=== PATIENT | male | born 1935 | race Caucasian/White ===

== ENCOUNTER 2016-12-17 10:50 | Emergency (ER) | payer MEDICARE ==
[~2016-12-17] VITALS: Ht 177.8 cm; Wt 68.2 kg
[~2016-12-17 10:50] MED LIST: BACLOFEN10 MG PO; BENAZEPRIL5 MG PO; CARBAMAZEPIN200 MG PO; CARVEDILOL6.25 MG PO; COREG6.25 MG PO; DIGITEK0.125 MG PO; FLOMAX0.4 M1 PO; LANOXIN0.125 MG PO; PRAVASTATIN20 MG OR; TAMSULOSIN HCL0.4 MG PO; TYLENOL # 31 TA1 PO
[2016-12-17] MEDS ORDERED: ATORVASTATIN CA80 MG PO (11:17)
[2016-12-17] MEDS ORDERED: BENAZEPRIL10 MG PO (11:18)
[2016-12-17] MEDS ORDERED: LANOXIN0.125 MG PO (11:21)
[2016-12-17] MEDS ORDERED: FINASTERIDE5 MG PO (11:23)
[2016-12-17] MEDS ORDERED: DOXYCYC MONO100 M1 PO (11:31)
[2016-12-17 11:34] VITALS: BP 148/78
== END 2016-12-17 11:59 | disposition home or self-care (01) ==
LOC: ED 10:50
PROC: 0HCMXZZ Extirpation of Matter from Right Foot Skin, External Approach (ICD-10-PCS; principal; 2016-12-17)
DX: S91.341A Puncture wound with foreign body, right foot, initial encounter (principal); W45.8XXA Other foreign body or object entering through skin, initial encounter; Y92.009 Unspecified place in unspecified non-institutional (private) residence as the place of occurrence of the external cause

== ENCOUNTER 2016-12-19 08:40 | Inpatient (IN) | payer MEDICARE ==
[~2016-12-19] VITALS: Ht 177.8 cm; Wt 66.4 kg
[~2016-12-19 08:40] MED LIST changes: +ATORVASTATIN CA80 MG PO; +BENAZEPRIL10 MG PO; +DOXYCYC MONO100 M1 PO; +FINASTERIDE5 MG PO
[2016-12-19 09:43] LABS: ALBUMIN 4.1 g/dL (3.2-5.0); ALKALINE PHOSPHATASE 68 u/l (38-126); ANION GAP 17 (6-22 (CALC)); BILIRUBIN, TOTAL 0.3 mg/dL (0.0-1.4); BUN 26 mg/dL (8-23); BUN/CREATININE RATIO 30 (12-20 (CALC)); CARBON DIOXIDE 27 mmol/l (22-30); CHLORIDE 103 mmol/l (95-108); CREATININE 0.9 mg/dL (0.7-1.3); GFR > 60 ML/MIN (>=60 (CALC)); GFR FOR AFR.AMER. > 60 ML/MIN (>=60 (CALC)); GLUCOSE 198 mg/dL (82-115); POTASSIUM 4.2 mmol/l (3.5-5.1); SGOT/AST 20 u/l (19-48); SGPT/ALT 20 u/l (11-66); SODIUM 142 mmol/l (137-146); TOTAL PROTEIN 7.1 g/dL (6.3-8.2)
[2016-12-19 09:48] LABS: HEMOGLOBIN 12.8 g/dl (14.0-18.0); RED BLOOD COUNT 3.79 mill/uL (4.70-6.10)
[2016-12-19 09:49] LABS: EOS% 3 % (0-8); HEMATOCRIT 37.5 % (39.0-50.0); LYMPH% 10 % (15-41); MEAN CELL VOLUME 98.9 fL CALC (80.0-100.0); MEAN CORPUSCULAR HGB 33.8 pG CALC (26.0-32.0); MEAN CORPUSCULAR HGB CONC 34.1 g/L CALC (32.0-36.0); MONO% 5 % (2-13); NEUT% 82 % (42-76); PLATELET COUNT 251 thou/uL (130-400); RED CELL DISTRI WIDTH 14.2 % (11.5-15.5)
[2016-12-19 11:15] VITALS: BP 128/66
[2016-12-19 16:26] VITALS: BP 147/69
[2016-12-19] MEDS ORDERED: ACID CONTROL MA20 MG PO (16:38)
[2016-12-19] MEDS ORDERED: BACLOFEN10 MG PO (16:39)
[2016-12-19] MEDS ORDERED: CARBAMAZEPIN200 M1 PO (16:41)
[2016-12-19 18:56] LABS: URINE BILIRUBIN - DIPSTICK NEGATIVE (NEGATIVE); URINE BLOOD DIPSTICK NEGATIVE (NEGATIVE); URINE COLOR YELLOW; URINE GLUCOSE - DIPSTICK NEGATIVE (NEGATIVE); URINE KETONE NEGATIVE (NEGATIVE); URINE LEUK ESTERASE NEGATIVE (Negative); URINE NITRITE - DIPSTICK NEGATIVE (Negative); URINE PROTEIN - DIPSTICK TRACE mg/dL (NEG-TRACE); URINE UROBILINOGEN - DIPSTICK 0.2 E.U./dL (0.2)
[2016-12-19 18:57] LABS: URINE CLARITY SLIGHT CLOUDY
[2016-12-19 19:35] VITALS: BP 136/76
[2016-12-20 03:20] VITALS: BP 151/72
[2016-12-20 05:55] LABS: HEMATOCRIT 36.8 % (39.0-50.0); HEMOGLOBIN 12.1 g/dl (14.0-18.0); IMMATURE GRANULOCYTES 0.2 % (0.0-1.0); MEAN CELL VOLUME 97.4 fL CALC (80.0-100.0); MEAN CORPUSCULAR HGB CONC 32.9 g/L CALC (32.0-36.0); NEUT# 5.46 thou/uL (1.82-7.42); RED BLOOD COUNT 3.78 mill/uL (4.70-6.10); RED CELL DISTRI WIDTH 13.7 % (11.5-15.5)
[2016-12-20 06:11] LABS: ANION GAP 15 (6-22 (CALC)); BUN 20 mg/dL (8-23); BUN/CREATININE RATIO 26 (12-20 (CALC)); CALCIUM 8.4 mg/dL (8.4-10.2); CARBON DIOXIDE 25 mmol/l (22-30); CHLORIDE 105 mmol/l (95-108); CREATININE 0.8 mg/dL (0.7-1.3); GFR > 60 ML/MIN (>=60 (CALC)); GFR FOR AFR.AMER. > 60 ML/MIN (>=60 (CALC)); GLUCOSE 105 mg/dL (82-115); POTASSIUM 4.2 mmol/l (3.5-5.1); SODIUM 141 mmol/l (137-146)
[2016-12-20 07:36] VITALS: BP 148/68
[2016-12-20] MEDS ORDERED: CIPROFLOXACN500 MG PO (15:22)
[2016-12-20] MEDS ORDERED: DAPTOMYCIN500 MG IV (15:22)
== END 2016-12-20 16:20 | DRG 603 ==
LOC: ENPENDDIS → ED 08:40 → ED-I 10:04 → ED 10:23 → MS2 10:24
PROVIDERS: Emergency Medicine; ADMIT Internal Medicine; ATTEND Internal Medicine
DX: L03.115 Cellulitis of right lower limb (principal); I42.0 Dilated cardiomyopathy; I50.22 Chronic systolic (congestive) heart failure; I11.0 Hypertensive heart disease with heart failure; S91.341A Puncture wound with foreign body, right foot, initial encounter; E78.5 Hyperlipidemia, unspecified; N40.1 Benign prostatic hyperplasia with lower urinary tract symptoms; R33.8 Other retention of urine; R35.1 Nocturia; M19.90 Unspecified osteoarthritis, unspecified site; K46.9 Unspecified abdominal hernia without obstruction or gangrene; Z95.810 Presence of automatic (implantable) cardiac defibrillator; Z87.891 Personal history of nicotine dependence; Z88.0 Allergy status to penicillin; W22.8XXA Striking against or struck by other objects, initial encounter
CPT/HCPCS: J1650; J3370

== ENCOUNTER → 2018-08-29 | Outpatient (REF) | payer MEDICARE ==
[~2018-08-29] MED LIST changes: +ACID CONTROL MA20 MG PO; +CARBAMAZEPIN200 M1 PO; +CIPROFLOXACN500 MG PO; +DAPTOMYCIN500 MG IV
[2018-08-29 08:33] LABS: ALBUMIN 3.9 g/dL (3.2-5.0); ALKALINE PHOSPHATASE 92 u/l (38-126); ANION GAP 16 (6-22 (CALC)); BILIRUBIN, TOTAL 0.2 mg/dL (0.0-1.4); BUN 24 mg/dL (8-23); BUN/CREATININE RATIO 26 (12-20 (CALC)); CARBON DIOXIDE 31 mmol/l (22-30); CHLORIDE 101 mmol/l (95-108); CHOLESTEROL HDL RATIO 3.8 (<4.4 (CALC)); CREATININE 0.9 mg/dL (0.7-1.3); GFR > 60 ML/MIN (>=60 (CALC)); GFR FOR AFR.AMER. > 60 ML/MIN (>=60 (CALC)); HDL CHOLESTEROL 29 mg/dL (>=40); POTASSIUM 4.5 mmol/l (3.5-5.1); SGOT/AST 24 u/l (19-48); SODIUM 143 mmol/l (137-146); TOTAL TRIGLYCERIDES 121 mg/dl (30-149); VLDL CHOLESTROL 24 mg/dl (0-38 (CALC))
[2018-08-29 09:10] LABS: HEMATOCRIT 36.6 % (39.0-50.0); HEMOGLOBIN 11.3 g/dl (14.0-18.0); IMMATURE GRANULOCYTES 0.9 % (0.0-5.0); MEAN CELL VOLUME 92.9 fL CALC (80.0-100.0); MEAN CORPUSCULAR HGB 28.7 pG CALC (26.0-32.0); MEAN CORPUSCULAR HGB CONC 30.9 g/L CALC (32.0-36.0); NEUT# 5.43 thou/uL (1.82-7.42); RED BLOOD COUNT 3.94 mill/uL (4.70-6.10); RED CELL DISTRI WIDTH 15.9 % (11.5-15.5)
[2018-08-29 09:13] LABS: CALCULATED LDLCHOLESTEROL 58 mg/dL (62-129 (CALC)); TOTAL CHOLESTEROL 111 mg/dl (0-199)
== END | disposition home or self-care (01) ==
LOC: LAB 06:54
PROVIDERS: ATTEND Internal Medicine
DX: I10 Essential (primary) hypertension (principal); E78.49 Other hyperlipidemia; E03.9 Hypothyroidism, unspecified; R53.83 Other fatigue; E11.65 Type 2 diabetes mellitus with hyperglycemia; E55.9 Vitamin D deficiency, unspecified

== ENCOUNTER 2019-03-14 09:19 | Emergency (ER) | payer MEDICARE ==
[~2019-03-14] VITALS: Ht 177.8 cm; Wt 60.0 kg
[~2019-03-14 09:19] MED LIST changes: -BENAZEPRIL10 MG PO; +LOTENSIN10 MG PO
[2019-03-14 09:59] VITALS: BP 151/67
[2019-03-14] MEDS ORDERED: CYCLOBENZAPRINE5 MG PO (10:02)
== END 2019-03-14 10:35 | disposition home or self-care (01) ==
LOC: ED 09:19
DX: M54.6 Pain in thoracic spine (principal); M62.830 Muscle spasm of back; I10 Essential (primary) hypertension; I25.10 Atherosclerotic heart disease of native coronary artery without angina pectoris

== ENCOUNTER 2019-03-17 09:02 | Emergency (ER) | payer MEDICARE ==
[~2019-03-17] VITALS: Ht 177.8 cm; Wt 55.0 kg
[~2019-03-17 09:02] MED LIST changes: +CYCLOBENZAPRINE5 MG PO
[2019-03-17 10:10] LABS: ALBUMIN 3.4 g/dL (3.2-5.0); ALKALINE PHOSPHATASE 60 u/l (38-126); BILIRUBIN, TOTAL 0.2 mg/dL (0.0-1.4); BUN 15 mg/dL (8-23); BUN/CREATININE RATIO 16 (12-20 (CALC)); CARBON DIOXIDE 29 mmol/l (22-30); CHLORIDE 101 mmol/l (95-108); CREATININE 0.9 mg/dL (0.7-1.3); GFR > 60 ML/MIN (>=60 (CALC)); GFR FOR AFR.AMER. > 60 ML/MIN (>=60 (CALC)); SGOT/AST 20 u/l (19-48); SODIUM 141 mmol/l (137-146); TOTAL PROTEIN 6.3 g/dL (6.3-8.2)
[2019-03-17 10:14] LABS: ANION GAP 15 (6-22 (CALC)); DIGOXIN < 0.4 ng/mL (0.8-2.0); POTASSIUM 3.7 mmol/l (3.5-5.1)
[2019-03-17] MEDS ORDERED: PERCOCET 10/31 COMBO PO (10:39)
[2019-03-17] MEDS ORDERED: DELTASONE20 MG PO (10:39)
[2019-03-17] MEDS ORDERED: DICLOFENAC50 MG PO (10:40)
[2019-03-17 11:00] VITALS: BP 127/58
== END 2019-03-17 11:00 | disposition home or self-care (01) ==
LOC: ED 09:02
PROVIDERS: Emergency Medicine
DX: M54.2 Cervicalgia (principal); G89.29 Other chronic pain; R51 Headache; I10 Essential (primary) hypertension

== ENCOUNTER 2019-06-30 04:04 | Emergency (ER) | payer MEDICARE ==
[~2019-06-30] VITALS: Ht 177.8 cm; Wt 68.0 kg
[~2019-06-30 04:04] MED LIST changes: +DELTASONE20 MG PO; +DICLOFENAC50 MG PO; +PERCOCET 10/31 COMBO PO
[2019-06-30] MEDS ORDERED: PERCOCET 5/325M1 TAB PO (06:01)
[2019-06-30 06:10] VITALS: BP 150/58
== END 2019-06-30 06:10 | disposition home or self-care (01) ==
LOC: ED 04:04
DX: M79.651 Pain in right thigh (principal); M17.11 Unilateral primary osteoarthritis, right knee; I10 Essential (primary) hypertension; I25.10 Atherosclerotic heart disease of native coronary artery without angina pectoris

== ENCOUNTER 2021-11-30 18:05 | Emergency (ER) | payer MEDICARE ==
[~2021-11-30] VITALS: Ht 177.8 cm; Wt 72.7 kg
[~2021-11-30 18:05] MED LIST changes: +CALCI17 PO; +FAMOTIDINE20 M1 PO; +LEVOCETIRIZINE D5 MG PO; +MULTI VIT PO; +PERCOCET 5/325M1 TAB PO; +PROSTAT1 PO; +VITAMI16 PO
[2021-11-30 19:03] LABS: URINE BILIRUBIN - DIPSTICK NEGATIVE (NEGATIVE); URINE BLOOD DIPSTICK NEGATIVE (NEGATIVE); URINE COLOR YELLOW; URINE GLUCOSE - DIPSTICK NEGATIVE (NEGATIVE); URINE KETONE TRACE mg/dL (NEGATIVE); URINE PH 5.5 (4.5-8.0); URINE PROTEIN - DIPSTICK 30 mg/dL (NEG-TRACE); URINE SPECIFIC GRAVITY 1.025; URINE UROBILINOGEN - DIPSTICK 0.2 E.U./dL (0.2)
[2021-11-30 19:11] LABS: URINE LEUK ESTERASE SMALL (NEGATIVE); URINE NITRITE - DIPSTICK NEGATIVE (Negative)
[2021-11-30 19:12] LABS: URINE RBC 0-2 RBC/hpf (0-5)
[2021-11-30 19:35] LABS: HEMATOCRIT 37.5 % (39.0-50.0); HEMOGLOBIN 11.6 g/dl (14.0-18.0); IMMATURE GRANULOCYTES 0.1 % (0.0-5.0); MEAN CELL VOLUME 97.4 fL CALC (80.0-100.0); MEAN CORPUSCULAR HGB 30.1 pG CALC (26.0-32.0); MEAN CORPUSCULAR HGB CONC 30.9 g/dL CAL (32.0-36.0); NEUT# 7.28 thou/uL (1.82-7.42); RED BLOOD COUNT 3.85 mill/uL (4.70-6.10)
[2021-11-30 19:52] LABS: ANION GAP 17 (6-22 (CALC)); BUN 24 mg/dL (8-23); BUN/CREATININE RATIO 21 (12-20 (CALC)); CARBON DIOXIDE 22 mmol/l (22-30); CHLORIDE 106 mmol/l (95-108); CREATININE 1.1 mg/dL (0.7-1.3); GFR > 60 ML/MIN (>=60 (CALC)); GFR FOR AFR.AMER. > 60 ML/MIN (>=60 (CALC)); POTASSIUM 4.5 mmol/l (3.5-5.1); SODIUM 140 mmol/l (137-146)
[2021-11-30 20:00] VITALS: BP 114/59
[2021-11-30] MEDS ORDERED: KEFLEX500 MG PO (20:29)
[2021-11-30] MEDS ORDERED: TAMSULOSIN0.4 MG PO (20:29)
[2021-11-30 20:31] VITALS: BP 123/57
[2021-11-30 20:48] VITALS: BP 120/78
== END 2021-11-30 20:52 | disposition home or self-care (01) ==
LOC: ED 18:05
PROVIDERS: Nurse Practitioner
DX: T83.84XA Pain due to genitourinary prosthetic devices, implants and grafts, initial encounter (principal); N40.0 Benign prostatic hyperplasia without lower urinary tract symptoms; Y84.6 Urinary catheterization as the cause of abnormal reaction of the patient, or of later complication, without mention of misadventure at the time of the procedure; Z95.810 Presence of automatic (implantable) cardiac defibrillator

== ENCOUNTER 2021-12-02 21:49 | Emergency (ER) | payer MEDICARE ==
[~2021-12-02] VITALS: Ht 177.8 cm; Wt 68.0 kg
[~2021-12-02 21:49] MED LIST changes: +KEFLEX500 MG PO; +TAMSULOSIN0.4 MG PO
[2021-12-02 22:51] VITALS: BP 187/92
== END 2021-12-02 22:50 | disposition home or self-care (01) ==
LOC: ED 21:49
DX: T83.84XA Pain due to genitourinary prosthetic devices, implants and grafts, initial encounter (principal)

== ENCOUNTER 2022-06-12 00:23 | Emergency (ER) | payer MEDICARE ==
[~2022-06-12] VITALS: Ht 177.8 cm; Wt 75.0 kg
[2022-06-12 01:15] LABS: URINE BILIRUBIN - DIPSTICK NEGATIVE (NEGATIVE); URINE COLOR YELLOW; URINE GLUCOSE - DIPSTICK NEGATIVE (NEGATIVE); URINE KETONE TRACE mg/dL (NEGATIVE); URINE LEUK ESTERASE SMALL (NEGATIVE); URINE NITRITE - DIPSTICK NEGATIVE (Negative); URINE PH 5.5 (4.5-8.0); URINE PROTEIN - DIPSTICK TRACE mg/dL (NEG-TRACE); URINE UROBILINOGEN - DIPSTICK 0.2 E.U./dL (0.2)
[2022-06-12 01:16] LABS: URINE BLOOD DIPSTICK NEGATIVE (NEGATIVE)
[2022-06-12 01:29] LABS: URINE WBC 50-100 WBC/hpf (0-5)
[2022-06-12 01:30] LABS: URINE BACTERIA MODERATE hpf; URINE EPITHELIAL CELLS FEW EPI/hpf (0-FEW)
[2022-06-12] MEDS ORDERED: BACTRIM DS1 TAB PO (01:34)
[2022-06-12 01:39] VITALS: BP 162/77
== END 2022-06-12 01:47 | disposition home or self-care (01) ==
LOC: ED 00:23
PROVIDERS: Emergency Medicine
PROC: 0T9B70Z Drainage of Bladder with Drainage Device, Via Natural or Artificial Opening (ICD-10-PCS; principal; 2022-06-12)
DX: N40.1 Benign prostatic hyperplasia with lower urinary tract symptoms (principal); R33.8 Other retention of urine; N39.0 Urinary tract infection, site not specified; B96.1 Klebsiella pneumoniae [K. pneumoniae] as the cause of diseases classified elsewhere; Z96.0 Presence of urogenital implants; Z95.810 Presence of automatic (implantable) cardiac defibrillator

== ENCOUNTER 2022-11-10 07:27 | Day surgery (SDC) | payer MEDICARE ==
[~2022-11-10] VITALS: Ht 177.8 cm; Wt 68.0 kg
[~2022-11-10 07:27] MED LIST changes: +ACETAMINOP160 MG/5 M PO; +ASPIRIN325 MG PO; +BACTRIM DS1 TAB PO
[2022-11-10] MEDS ORDERED: FISH OIL1000 M1 PO (08:24)
[2022-11-10 13:13] VITALS: BP 160/57
== END 2022-11-10 13:43 | disposition home or self-care (01) ==
LOC: ORM 07:27
PROVIDERS: ATTEND Urology
PROC: 0VB08ZZ Excision of Prostate, Via Natural or Artificial Opening Endoscopic (ICD-10-PCS; principal; 2022-11-10)
PROC: 0TND8ZZ Release Urethra, Via Natural or Artificial Opening Endoscopic (ICD-10-PCS; 2022-11-10)
DX: N40.1 Benign prostatic hyperplasia with lower urinary tract symptoms (principal); R33.8 Other retention of urine; N35.912 Unspecified bulbous urethral stricture, male; E11.9 Type 2 diabetes mellitus without complications; I48.91 Unspecified atrial fibrillation; I50.9 Heart failure, unspecified; Z87.891 Personal history of nicotine dependence; Z95.810 Presence of automatic (implantable) cardiac defibrillator; Z79.84 Long term (current) use of oral hypoglycemic drugs; R31.9 Hematuria, unspecified; F03.90 Unspecified dementia, unspecified severity, without behavioral disturbance, psychotic disturbance, mood disturbance, and anxiety; Z98.890 Other specified postprocedural states
CPT/HCPCS: J1956

== ENCOUNTER 2022-11-10 17:38 | Emergency (ER) | payer MEDICARE ==
[2022-11-10] VITALS (7 sets, daily range): BP systolic 148–161; BP diastolic 63–75
[~2022-11-10] VITALS: Ht 177.8 cm; Wt 91.6 kg
[~2022-11-10 17:38] MED LIST changes: +FISH OIL1000 M1 PO
== END 2022-11-10 20:35 | disposition home or self-care (01) ==
LOC: ED 17:38
DX: R31.9 Hematuria, unspecified (principal); F03.90 Unspecified dementia, unspecified severity, without behavioral disturbance, psychotic disturbance, mood disturbance, and anxiety; Z95.810 Presence of automatic (implantable) cardiac defibrillator; Z98.890 Other specified postprocedural states

== ENCOUNTER 2022-12-28 17:18 | Emergency (ER) | payer MEDICARE ==
[~2022-12-28] VITALS: Ht 177.8 cm; Wt 68.0 kg
[2022-12-28 17:25] VITALS: BP 165/82
[2022-12-28 17:30] VITALS: BP 167/75
[2022-12-28 17:45] VITALS: BP 163/69
[2022-12-28 18:18] LABS: BASO% 0.2 % (0-3); EOS% 0.1 % (0-8); HEMATOCRIT 33.6 % (39.0-50.0); HEMOGLOBIN 10.6 g/dl (14.0-18.0); IMMATURE GRANULOCYTES 0.2 % (0.0-5.0); LYMPH% 14.1 % (15-41); MEAN CELL VOLUME 99.4 fL CALC (80.0-100.0); MEAN CORPUSCULAR HGB 31.4 pG CALC (26.0-32.0); MEAN CORPUSCULAR HGB CONC 31.5 g/dL CAL (32.0-36.0); MONO% 16.6 % (2-13); NEUT# 9.3 thou/uL (1.82-7.42); NEUT% 68.8 % (42-76); RED BLOOD COUNT 3.38 mill/uL (4.70-6.10); RED CELL DISTRI WIDTH 13.8 % (11.5-15.5)
[2022-12-28 18:37] LABS: ALBUMIN 4.4 g/dL (3.2-5.0); ALKALINE PHOSPHATASE 115 u/l (38-126); ANION GAP 16 (6-22 (CALC)); BILIRUBIN, TOTAL 0.4 mg/dL (0.2-1.3); BUN 28 mg/dL (8-23); BUN/CREATININE RATIO 26 (12-20 (CALC)); CARBON DIOXIDE 24 mmol/l (22-30); CHLORIDE 104 mmol/l (95-108); GFR FOR AFR.AMER. > 60 ML/MIN (>=60 (CALC)); GFR OTHER RACES > 60 ML/MIN (>=60 (CALC)); POTASSIUM 4.5 mmol/l (3.5-5.1); SGOT/AST 24 u/l (19-48); SODIUM 140 mmol/l (137-146); TOTAL PROTEIN 8.2 g/dL (6.3-8.2)
[2022-12-28 18:50] VITALS: BP 163/69
== END 2022-12-28 18:53 | disposition home or self-care (01) ==
LOC: ED 17:18
PROVIDERS: Family Medicine
DX: M25.572 Pain in left ankle and joints of left foot (principal); S92.505A Nondisplaced unspecified fracture of left lesser toe(s), initial encounter for closed fracture; X58.XXXA Exposure to other specified factors, initial encounter; Z95.810 Presence of automatic (implantable) cardiac defibrillator

== ENCOUNTER 2023-01-01 10:55 | Inpatient (IN) | payer MEDICARE ==
[2023-01-01] VITALS (31 sets, daily range): BP systolic 116–187; BP diastolic 43–85
[~2023-01-01] VITALS: Ht 177.8 cm; Wt 62.6 kg
--- NOTE | 2023-01-01 10:58 | NUR ---
PT ARRIVED VIA EMS CC OF LEFT SHOULDER/ ARM PAIN S/P FALL TWO DAYS AGO, PT VSS. PT DENIES SOB REPORTS PAIN TO LEFT SHOULDER AND ARM. PT HAS A LEFT UPPER CHEST PACEMAKER AND LEFT GONZALEZ BOOT ON LEFT FOOT RELATED TO FALL 12/28/22. RIGHT WRIST 20G PLACED BY EMS. MD NOTIFIED. FALL AND SAFETY PRECAUTIONS IN PLACE. CALL LIGHT WITHIN REACH.
--- NOTE | 2023-01-01 11:47 | NUR ---
PT TO XRAY
--- NOTE | 2023-01-01 12:03 | NUR ---
PT RETURNED FROM RADIOLOGY. VSS. PT MEDICSTED FOR PAIN. FAMILY AT BEDSIDE
--- NOTE | 2023-01-01 13:00 | NUR ---
PT IN ROOM RESTING, VSS. FAMILY AT BEDSIDE. PT SHOUTING OUT LOUD YELLING AT FAMILY. FALL AND SAFETY PRECAUTIONS IN PLACE. CALL LIGHT WITHIN REACH
--- NOTE | 2023-01-01 15:37 | NUR ---
IN ROOM ATTEMPTING TO DEFLATE PENILE IMPLANT.
[2023-01-01] MEDS ORDERED: HYDROXYZ HCL25 MG PO (16:32)
[2023-01-01] MEDS ORDERED: MEMANTINE HYDRO10 MG PO (16:34)
[2023-01-01] MEDS ORDERED: KENALOG15 GM/TUBE EX (16:34)
[2023-01-01] MEDS ORDERED: BUSPAR10 MG PO (16:35)
[2023-01-01] MEDS ORDERED: METFORMIN500 M2 PO (16:35)
--- NOTE | 2023-01-01 16:43 | NUR ---
MED SURG NURSE CALLED TO GIVE REPORTS, RN REQUESTING MD NOTED AND ADDITIONAL LABS. MD NOTIFIED, CASSIE AVERY DIRECTOR NOTIFIED.
[2023-01-01 17:29] LABS: BASO% 0.2 % (0-3); EOS% 1.1 % (0-8); HEMATOCRIT 29.6 % (39.0-50.0); HEMOGLOBIN 9.4 g/dl (14.0-18.0); IMMATURE GRANULOCYTES 0.3 % (0.0-5.0); LYMPH% 9.4 % (15-41); MEAN CELL VOLUME 97.7 fL CALC (80.0-100.0); MEAN CORPUSCULAR HGB CONC 31.8 g/dL CAL (32.0-36.0); MONO% 6.2 % (2-13); NEUT# 10.35 thou/uL (1.82-7.42); NEUT% 82.8 % (42-76); RED BLOOD COUNT 3.03 mill/uL (4.70-6.10); RED CELL DISTRI WIDTH 13.6 % (11.5-15.5)
[2023-01-01 17:43] LABS: ALKALINE PHOSPHATASE 110 u/l (38-126); BUN 21 mg/dL (8-23); BUN/CREATININE RATIO 27 (12-20 (CALC)); CARBON DIOXIDE 22 mmol/l (22-30); CHLORIDE 107 mmol/l (95-108); CREATININE 0.8 mg/dL (0.7-1.3); GFR FOR AFR.AMER. > 60 ML/MIN (>=60 (CALC)); GFR OTHER RACES > 60 ML/MIN (>=60 (CALC)); SGOT/AST 38 u/l (19-48); SODIUM 140 mmol/l (137-146); TOTAL PROTEIN 7.3 g/dL (6.3-8.2)
[2023-01-01 17:45] LABS: ALBUMIN 3.5 g/dL (3.2-5.0); ANION GAP 15 (6-22 (CALC)); POTASSIUM 3.5 mmol/l (3.5-5.1)
--- NOTE | 2023-01-01 18:18 | NUR ---
PT IN BED, VSS. URINAL PROVIDED FOR PATIENT REQUEST. PT IS CONFUSED AND NEEDS FREQUENT ORIENTATION. PT ATTEMPTS TO GET OUT OF BED AND KEEPS SHOUTING. FALL AND SAFETY PRECAUTIONS IN PLACE, CALL LIGHT WITHIN REACH
--- NOTE | 2023-01-01 19:17 | NUR ---
REPORT GIVEN TO JUDITH MERCEDES. PT FAMILY AT BEDSIDE.
--- NOTE | 2023-01-01 19:56 | NUR ---
RECEIVED REPORT FROM ER AT 184. PT TO FLOOR AT APPROX 191. CONFUSED. ORIENTED TO SELF. WEIGHT COMPLETED. VITAL SIGNS TAKEN. PT WITH LEFT FOOT "BOOT ON" FROM PREVIOUS FALL. ABLE TO AMBULATE WITH ASSIST. AND SON WERE IN AND LEFT. SITTER WITH PT. PLEASANT CONFUSED AT PRESENT.
--- NOTE | 2023-01-01 21:28 | NUR ---
PT ADMITTED TO ROOM 281. CONFUSED. REPEATS BACK WHAT IS SAID TO HIM. APPEARS APREHENSIVE AND RELUCTANT REGARDING CARE. ALSO INAPPROPRIATE AT TIMES. PT HAS MULTIPLE SCARTCHES AND SCABS OVER BOTH ARMS AND LEGS. BUTTOCKS INTACT. HAS WALKING BOOT ON LEFT FOOT. SKIN BOTH FEET INTACT. NO REDNESS. TAKING FLUIDS WELL AND SMALL AMT OF FOOD WITHOUT DIFFICULTY. SITTER WITH PT FOR SAFETY. SIDE RAILS UP AND BED ALARM IS ENGAGED. CALL LIGHT IN REACH.
[2023-01-02] VITALS (9 sets, daily range): BP systolic 139–180; BP diastolic 60–70
[2023-01-02 02:25] LABS: URINE BILIRUBIN - DIPSTICK NEGATIVE (NEGATIVE); URINE BLOOD DIPSTICK SMALL (NEGATIVE); URINE COLOR YELLOW; URINE GLUCOSE - DIPSTICK NEGATIVE (NEGATIVE); URINE KETONE NEGATIVE (NEGATIVE); URINE PROTEIN - DIPSTICK 100 mg/dL (NEG-TRACE); URINE SPECIFIC GRAVITY 1.025; URINE UROBILINOGEN - DIPSTICK 0.2 E.U./dL (0.2)
[2023-01-02 02:26] LABS: URINE LEUK ESTERASE MODERATE (NEGATIVE); URINE NITRITE - DIPSTICK POSITIVE (Negative)
[2023-01-02 02:33] LABS: URINE BACTERIA MANY hpf; URINE SQUAMOUS EPITHELIAL CELL FEW EPI/hpf (0-FEW); URINE WBC 20-50 WBC/hpf (0-5)
--- NOTE | 2023-01-02 03:22 | NUR ---
PT REMAINS AWAKE AND VERY TALKATIVE.PLEASANTLY CONFUSED. WAS GIVEN SLEEPING PILL EARLIER IN SHIFT. COOPERATIVE. YANIV FLUIDS WELL. SITTER WITH PT. URINATING VIA PUREWICK.
--- NOTE | 2023-01-02 08:00 | NUR ---
PT IN BED WITH HOB UP ALERT AND OREINTED TO SELF ONLY. PT HAS NO C/O PAIN AT THIS TIME. IV SITE # 20 TO LFA CLEAN AND INTACT SL. PT HAS PUREWICK ON AND IN PLACE WITH CLEAR YELLOW URINE DRAINING INTO CANISTER. PT HAS USING BED LEON FOR BOWEL MOVEMENT. PT HAS DRSY SKIN WITH LESIONS ON BLE AND BUE. PT HAS CALL LIGHT WITHIN REACH ALL SAFETY MEASURES IN PLACE AND SITTER AT BEDSIDE.
--- NOTE | 2023-01-02 12:00 | NUR ---
PT IN BED WITH HOB UP ALERT AND ORIENTED TO SELF ONLY; CONTINUOSLY ASK TO SEE HIS , THAT WAS IN RM EARLIER. PT REDIRECTED. PT HAS NO C/O PAIN AT THIS TIME. CALL LIGHT WITHIN REACH, SAFETY MEASURES IN PLACE AND SITTER IN .
--- NOTE | 2023-01-02 12:34 | NUR ---
MONITORING PT WHILE ANTIBIOTIC IS RUNNING. V/S ARE WITHIN NORMAL LIMITS. PT STATES HE FEELS GOOD. NURSE MADE AWARE.
--- NOTE | 2023-01-02 16:00 | NUR ---
PTIN BED WITH HOB UP, PT HAS NO C/O PAIN AT THIS TIME AND REMAINS ONLY ORIENTED TO SELF. PT HAS BED ALARM AND CALL LIGHT WITHIN REACH, WILL CONTINUE TO MONITOR PT.
--- NOTE | 2023-01-02 19:50 | NUR ---
NURSE NOTIFIED OF PATIENT BLOOD PRESSURE.
--- NOTE | 2023-01-02 20:38 | NUR ---
BEDSIDE REPORT RECEIVED FROM OFF GOING NURSE. PATIENT AWAKE IN BED AND ALERT TO SELF WITH CONFUSION. MOOD CALM AND COOPERATIVE. DENIES PAIN OR DISCOMFORT AT THIS TIME. RESPIRATIONS EVEN AND UNLABORED ON ROOM AIR. BP ELEVATED AND PATIENT MEDICATED WITH PRN ANTI-HYPERTENSIVE. REORIENTED TO CALL LIGHT. CALL LIGHT WITHIN REACH.
--- NOTE | 2023-01-02 22:44 | NUR ---
PATIENT AWAKE IN BED. DENIES PAIN OR DISCOMFORT. RESPIRATIONS EVEN AND UNLABORED ON ROOM AIR. SAFETY MEASURES IN PLACE. CALL LIGHT WITHIN REACH.
--- NOTE | 2023-01-03 01:50 | NUR ---
PATIENT ASLEEP ASLEEP IN BED AT THIS TIME. RESPIRATIONS EVEN AND UNLABORED ON ROOM AIR. IN NO APPARENT DISTRESS. SAFETY MEASURES IN PLACE. CALL LIGHT WITHIN REACH.
[2023-01-03 03:18] VITALS: BP 147/58
[2023-01-03 04:18] VITALS: BP 147/58
[2023-01-03 04:41] LABS: BASO% 0.6 % (0-3); EOS% 2.5 % (0-8); HEMATOCRIT 29.3 % (39.0-50.0); HEMOGLOBIN 9.4 g/dl (14.0-18.0); IMMATURE GRANULOCYTES 0.2 % (0.0-5.0); LYMPH% 17.6 % (15-41); MEAN CELL VOLUME 96.4 fL CALC (80.0-100.0); MEAN CORPUSCULAR HGB 30.9 pG CALC (26.0-32.0); MEAN CORPUSCULAR HGB CONC 32.1 g/dL CAL (32.0-36.0); MONO% 9.7 % (2-13); NEUT# 6.13 thou/uL (1.82-7.42); NEUT% 69.4 % (42-76); RED BLOOD COUNT 3.04 mill/uL (4.70-6.10); RED CELL DISTRI WIDTH 13.7 % (11.5-15.5)
[2023-01-03 05:01] LABS: ALKALINE PHOSPHATASE 94 u/l (38-126); ANION GAP 11 (6-22 (CALC)); BUN 17 mg/dL (8-23); BUN/CREATININE RATIO 28 (12-20 (CALC)); CARBON DIOXIDE 25 mmol/l (22-30); CHLORIDE 106 mmol/l (95-108); CREATININE 0.6 mg/dL (0.7-1.3); GFR FOR AFR.AMER. > 60 ML/MIN (>=60 (CALC)); GFR OTHER RACES > 60 ML/MIN (>=60 (CALC)); POTASSIUM 3.4 mmol/l (3.5-5.1); SGOT/AST 50 u/l (19-48); SODIUM 138 mmol/l (137-146); TOTAL PROTEIN 5.9 g/dL (6.3-8.2)
[2023-01-03 05:04] LABS: BILIRUBIN, TOTAL 0.1 mg/dL (0.2-1.3)
--- NOTE | 2023-01-03 05:37 | NUR ---
PATIENT RECEIVED NEW MALE FRANCIS @[phone]
--- NOTE | 2023-01-03 06:33 | NUR ---
PATIENT ASLEEP IN BED AT THIS TIME. PATIENT DECLINED TO WEAR CLOTHING THROUGHOUT THE NIGHT. PREFERRED TO JUST COVER UP WITH BLANKET. SAFETY MEASURES IN PLACE. CALL LIGHT WITHIN REACH.
--- NOTE | 2023-01-03 07:14 | NUR ---
BEDSIDE SHIFT REPORT, PT SLEEPING IN SUPINE POSITION, BREATHING EVEN AND NON-LABORED, NO SIGN DISCOMFORT, CALL MORROW IN REACH AND BED LOCKED IN LOWEST POSITION WITH ALARM ACTIVATED.
[2023-01-03 07:15] VITALS: BP 134/57
[2023-01-03 07:57] VITALS: BP 134/57
--- NOTE | 2023-01-03 12:00 | NUR ---
PT JUST ASSISTED OOB WITH ASSIST OF STAFF ALSO, HE IS A MAS ASSIST OF AT LEAST 2 TO TRANSFER FROM BED TO RECLINER, BODY ALARM PLACED, WILL CONTINUE TO MONITOR.
[2023-01-03 15:40] VITALS: BP 149/60
--- NOTE | 2023-01-03 16:00 | NUR ---
PT STATES HIS PAIN IS MUCH BETTER NOW AND THAT HE WANTS TO GET OOB AND AMBULATE, ADVISED HE WILL NEED ASSISTANCE FOR THAT AND STAFF WILL ASSIST HIM TO AMBULATE. BAD ALARM IS ACTIVATED, WILL CONTINUE TO MONITOR.
[2023-01-03 19:48] VITALS: BP 191/76
--- NOTE | 2023-01-03 19:48 | NUR ---
BEDSIDE REPORT RECEIVED FROM OFF GOING NURSE. PATIENT AWAKE IN BED. MOOD CALM AT THIS TIME. BED ALARM ACTIVE. SAFETY MEASURES IN PLACE. PATIENT ORIENTED TO CALL LIGHT.
--- NOTE | 2023-01-03 23:48 | NUR ---
PATIENT IN BED AWAKE AT THIS TIME. C/O BEING COLD. PATIENT PREFERS TO NOT WEAR A GOWN OR CLOTHING. EXTRA BLANKETS PROVIDED. NO C/O PAIN. RESPIRATIONS EVEN AND UNLABORED ON ROOM AIR. SAFETY MEASURES IN PLACE. CALL LIGHT WITHIN REACH.
[2023-01-04 00:55] VITALS: BP 126/45
--- NOTE | 2023-01-04 02:09 | NUR ---
PATIENT ASLEEP IN BED. IN NO APPARENT DISTRESS. CALL LIGHT WITHIN REACH.
--- NOTE | 2023-01-04 03:45 | NUR ---
PATIENT DECLINING TO HAVE BLOOD DRAWN FOR LABS AT THIS TIME STATING "I DON'T WANT NO BLOOD TAKE FROM ME". LAB AGREES TO COME BACK FOR ANOTHER ATTEMPT.
[2023-01-04 04:04] VITALS: BP 149/67
[2023-01-04 06:20] VITALS: BP 156/67
--- NOTE | 2023-01-04 08:00 | NUR ---
PT IN BED WITH HOB UP, ALERT AND OREINTED TO SELF ONLY. PT HAS NO C/O PAIN AT THIS TIME. LUNGS CLEAR BUT DIMNISHED. PT WEARING PUREWICK WITH CLEAR, YELLOW URUINE OUT. ABD SOFT WITH BS ACTIVE. PT HAS SCABS ON ARMS AND LEGS FROM PICKING, NO PICKING NOTED AT THIS TIME. PT HAS NO IV SITE AND REFUSES TO HAVE A NEW IV SITE PLACED. PT HAS CALL LIGHT WITHIN REACH, BED ALARM ON, BED IN LOWEST POSTION. WILL CONTINUE TO MONITOR PT CLOSELY.
[2023-01-04 08:08] VITALS: BP 156/67
[2023-01-04 08:26] LABS: BASO% 0.5 % (0-3); EOS% 4.2 % (0-8); HEMATOCRIT 30.7 % (39.0-50.0); HEMOGLOBIN 9.8 g/dl (14.0-18.0); IMMATURE GRANULOCYTES 0.2 % (0.0-5.0); MEAN CELL VOLUME 96.2 fL CALC (80.0-100.0); MEAN CORPUSCULAR HGB 30.7 pG CALC (26.0-32.0); MEAN CORPUSCULAR HGB CONC 31.9 g/dL CAL (32.0-36.0); MONO% 7.1 % (2-13); NEUT# 5.91 thou/uL (1.82-7.42); RED BLOOD COUNT 3.19 mill/uL (4.70-6.10); RED CELL DISTRI WIDTH 13.6 % (11.5-15.5)
[2023-01-04 08:35] LABS: ALBUMIN 3.3 g/dL (3.2-5.0); ALKALINE PHOSPHATASE 109 u/l (38-126); ANION GAP 15 (6-22 (CALC)); BUN 14 mg/dL (8-23); BUN/CREATININE RATIO 23 (12-20 (CALC)); CARBON DIOXIDE 25 mmol/l (22-30); CHLORIDE 105 mmol/l (95-108); CREATININE 0.6 mg/dL (0.7-1.3); GFR FOR AFR.AMER. > 60 ML/MIN (>=60 (CALC)); GFR OTHER RACES > 60 ML/MIN (>=60 (CALC)); POTASSIUM 3.8 mmol/l (3.5-5.1); SGOT/AST 35 u/l (19-48); SODIUM 141 mmol/l (137-146); TOTAL PROTEIN 6.4 g/dL (6.3-8.2)
--- NOTE | 2023-01-04 12:00 | NUR ---
PT IN BED WITH HOB UP, EATING LUNCH; REMAINS CONFUSED. PT HAS NO C/O PAIN AT THIS TIME. PT HAS NO CHANGE IN STATUS. CALL LIGHT WITHIN REACH AND ALL SAFETY MEASURES IN PLACE AT THIS TIME.
--- NOTE | 2023-01-04 14:43 | NUR ---
Discharge instructions given. Patient verbalizes understanding of same. Discharged in stable condition via Wheelchair to with family. All belongings sent with pt.
== END 2023-01-04 14:40 | DRG 690 ==
LOC: ED 10:55 → MS2 16:10
PROVIDERS: Nurse Practitioner Family; ADMIT Internal Medicine; ATTEND Internal Medicine
DX: N39.0 Urinary tract infection, site not specified (principal); R53.1 Weakness; M79.632 Pain in left forearm; M25.512 Pain in left shoulder; F03.90 Unspecified dementia, unspecified severity, without behavioral disturbance, psychotic disturbance, mood disturbance, and anxiety; I25.5 Ischemic cardiomyopathy; N40.0 Benign prostatic hyperplasia without lower urinary tract symptoms; S92.505D Nondisplaced unspecified fracture of left lesser toe(s), subsequent encounter for fracture with routine healing; W19.XXXD Unspecified fall, subsequent encounter; Z95.810 Presence of automatic (implantable) cardiac defibrillator

== ENCOUNTER 2023-01-27 01:38 | Emergency (ER) | payer MEDICARE ==
[~2023-01-27] VITALS: Ht 177.8 cm; Wt 65.0 kg
[~2023-01-27 01:38] MED LIST changes: +BUSPAR10 MG PO; +HYDROXYZ HCL25 MG PO; +KENALOG15 GM/TUBE EX; +MEMANTINE HYDRO10 MG PO; +METFORMIN500 M2 PO
[2023-01-27 02:19] LABS: BASO% 0.6 % (0-3); EOS% 1.2 % (0-8); HEMATOCRIT 31.8 % (39.0-50.0); HEMOGLOBIN 9.9 g/dl (14.0-18.0); IMMATURE GRANULOCYTES 0.6 % (0.0-5.0); LYMPH% 16.6 % (15-41); MEAN CELL VOLUME 96.7 fL CALC (80.0-100.0); MEAN CORPUSCULAR HGB 30.1 pG CALC (26.0-32.0); MEAN CORPUSCULAR HGB CONC 31.1 g/dL CAL (32.0-36.0); MONO% 13.7 % (2-13); NEUT# 5.82 thou/uL (1.82-7.42); NEUT% 67.3 % (42-76); RED BLOOD COUNT 3.29 mill/uL (4.70-6.10); RED CELL DISTRI WIDTH 14.5 % (11.5-15.5)
[2023-01-27 02:31] LABS: ALBUMIN 3.8 g/dL (3.2-5.0); ALKALINE PHOSPHATASE 117 u/l (38-126); ANION GAP 12 (6-22 (CALC)); BUN 19 mg/dL (8-23); BUN/CREATININE RATIO 24 (12-20 (CALC)); CARBON DIOXIDE 25 mmol/l (22-30); CHLORIDE 105 mmol/l (95-108); CREATININE 0.8 mg/dL (0.7-1.3); GFR FOR AFR.AMER. > 60 ML/MIN (>=60 (CALC)); GFR OTHER RACES > 60 ML/MIN (>=60 (CALC)); POTASSIUM 3.9 mmol/l (3.5-5.1); SGOT/AST 25 u/l (19-48); SODIUM 139 mmol/l (137-146); TOTAL PROTEIN 6.9 g/dL (6.3-8.2)
[2023-01-27 02:33] LABS: BILIRUBIN, TOTAL 0.3 mg/dL (0.2-1.3)
[2023-01-27 03:44] LABS: URINE BILIRUBIN - DIPSTICK NEGATIVE (NEGATIVE); URINE BLOOD DIPSTICK NEGATIVE (NEGATIVE); URINE COLOR YELLOW; URINE GLUCOSE - DIPSTICK NEGATIVE (NEGATIVE); URINE KETONE NEGATIVE (NEGATIVE); URINE LEUK ESTERASE TRACE (NEGATIVE); URINE PROTEIN - DIPSTICK 100 mg/dL (NEG-TRACE); URINE UROBILINOGEN - DIPSTICK 0.2 E.U./dL (0.2)
[2023-01-27 03:45] LABS: URINE NITRITE - DIPSTICK POSITIVE (Negative)
[2023-01-27 03:49] LABS: URINE BACTERIA MANY hpf; URINE MUCUS FEW hpf (NONE-FEW); URINE SQUAMOUS EPITHELIAL CELL FEW EPI/hpf (0-FEW)
[2023-01-27] MEDS ORDERED: BACTRIM DS1 TAB PO (04:47)
[2023-01-27 06:20] VITALS: BP 158/81
== END 2023-01-27 06:24 | disposition home or self-care (01) ==
LOC: ED 01:38
PROVIDERS: Family Medicine
DX: F03.90 Unspecified dementia, unspecified severity, without behavioral disturbance, psychotic disturbance, mood disturbance, and anxiety (principal); N39.0 Urinary tract infection, site not specified; B96.1 Klebsiella pneumoniae [K. pneumoniae] as the cause of diseases classified elsewhere; Z95.810 Presence of automatic (implantable) cardiac defibrillator; R53.1 Weakness

== ENCOUNTER 2023-01-27 10:37 | Emergency (ER) | payer MEDICARE ==
[~2023-01-27] VITALS: Ht 177.8 cm; Wt 67.1 kg
[2023-01-27] VITALS (12 sets, daily range): BP systolic 131–170; BP diastolic 72–122
[2023-01-27 11:24] LABS: ALBUMIN 4.1 g/dL (3.2-5.0); ALKALINE PHOSPHATASE 127 u/l (38-126); ANION GAP 14 (6-22 (CALC)); BILIRUBIN, TOTAL 0.3 mg/dL (0.2-1.3); BUN 16 mg/dL (8-23); BUN/CREATININE RATIO 22 (12-20 (CALC)); CARBON DIOXIDE 25 mmol/l (22-30); CHLORIDE 103 mmol/l (95-108); CREATININE 0.7 mg/dL (0.7-1.3); GFR FOR AFR.AMER. > 60 ML/MIN (>=60 (CALC)); GFR OTHER RACES > 60 ML/MIN (>=60 (CALC)); SGOT/AST 33 u/l (19-48); SODIUM 138 mmol/l (137-146); TOTAL PROTEIN 7.8 g/dL (6.3-8.2)
[2023-01-27 11:39] LABS: BASO% 0.6 % (0-3); EOS% 0.7 % (0-8); HEMATOCRIT 33.3 % (39.0-50.0); HEMOGLOBIN 10.5 g/dl (14.0-18.0); IMMATURE GRANULOCYTES 0.2 % (0.0-5.0); MEAN CELL VOLUME 96.5 fL CALC (80.0-100.0); MEAN CORPUSCULAR HGB 30.4 pG CALC (26.0-32.0); MEAN CORPUSCULAR HGB CONC 31.5 g/dL CAL (32.0-36.0); MONO% 14.5 % (2-13); NEUT# 6.87 thou/uL (1.82-7.42); RED BLOOD COUNT 3.45 mill/uL (4.70-6.10); RED CELL DISTRI WIDTH 14.3 % (11.5-15.5)
== END 2023-01-27 13:45 | disposition home or self-care (01) ==
LOC: ED 10:37
PROVIDERS: Family Medicine
DX: R53.1 Weakness (principal); F03.90 Unspecified dementia, unspecified severity, without behavioral disturbance, psychotic disturbance, mood disturbance, and anxiety; Z95.810 Presence of automatic (implantable) cardiac defibrillator

== ENCOUNTER 2023-03-13 04:02 | Emergency (ER) | payer MEDICARE ==
[~2023-03-13] VITALS: Ht 177.8 cm; Wt 60.0 kg
[2023-03-13 04:10] VITALS: BP 179/69
[2023-03-13 04:30] VITALS: BP 176/70
[2023-03-13 04:45] VITALS: BP 184/89
[2023-03-13 05:00] VITALS: BP 159/76
[2023-03-13 05:15] LABS: BASO% 0.2 % (0-3); EOS% 0.2 % (0-8); HEMATOCRIT 31.7 % (39.0-50.0); IMMATURE GRANULOCYTES 0.2 % (0.0-5.0); LYMPH% 12.2 % (15-41); MEAN CELL VOLUME 93.2 fL CALC (80.0-100.0); MEAN CORPUSCULAR HGB 29.4 pG CALC (26.0-32.0); MEAN CORPUSCULAR HGB CONC 31.5 g/dL CAL (32.0-36.0); NEUT# 9.97 thou/uL (1.82-7.42); NEUT% 75.2 % (42-76); RED BLOOD COUNT 3.4 mill/uL (4.70-6.10); RED CELL DISTRI WIDTH 14.4 % (11.5-15.5)
[2023-03-13 05:37] LABS: ALBUMIN 3.9 g/dL (3.2-5.0); ALKALINE PHOSPHATASE 82 u/l (38-126); ANION GAP 12 (6-22 (CALC)); BUN 16 mg/dL (8-23); BUN/CREATININE RATIO 19 (12-20 (CALC)); CARBON DIOXIDE 26 mmol/l (22-30); CHLORIDE 101 mmol/l (95-108); CREATININE 0.8 mg/dL (0.7-1.3); GFR FOR AFR.AMER. > 60 ML/MIN (>=60 (CALC)); GFR OTHER RACES > 60 ML/MIN (>=60 (CALC)); POTASSIUM 4.2 mmol/l (3.5-5.1); SGOT/AST 40 u/l (19-48); SODIUM 135 mmol/l (137-146); TOTAL PROTEIN 7.8 g/dL (6.3-8.2)
[2023-03-13 05:45] LABS: BILIRUBIN, TOTAL 0.7 mg/dL (0.2-1.3)
[2023-03-13 07:25] VITALS: BP 159/76
== END 2023-03-13 09:31 | disposition home or self-care (01) ==
LOC: ED 04:02
PROVIDERS: Family Medicine
DX: U07.1 COVID-19 (principal); M54.2 Cervicalgia; F03.90 Unspecified dementia, unspecified severity, without behavioral disturbance, psychotic disturbance, mood disturbance, and anxiety; N40.0 Benign prostatic hyperplasia without lower urinary tract symptoms; Z95.810 Presence of automatic (implantable) cardiac defibrillator

== ENCOUNTER 2023-03-30 08:56 | Observation (INO) | payer MEDICARE ==
[2023-03-30] VITALS (18 sets, daily range): BP systolic 66–161; BP diastolic 38–79
[~2023-03-30] VITALS: Ht 177.8 cm; Wt 58.4 kg
[~2023-03-30 08:56] MED LIST changes: +ATORVASTATIN CA40 MG PO; -ATORVASTATIN CA80 MG PO
[2023-03-30 09:27] LABS: BASO% 0.6 % (0-3); EOS% 2.6 % (0-8); HEMATOCRIT 30.1 % (39.0-50.0); HEMOGLOBIN 9.3 g/dl (14.0-18.0); IMMATURE GRANULOCYTES 0.1 % (0.0-5.0); LYMPH% 24.1 % (15-41); MEAN CELL VOLUME 92.3 fL CALC (80.0-100.0); MEAN CORPUSCULAR HGB 28.5 pG CALC (26.0-32.0); MEAN CORPUSCULAR HGB CONC 30.9 g/dL CAL (32.0-36.0); MONO% 7.6 % (2-13); NEUT# 4.69 thou/uL (1.82-7.42); RED BLOOD COUNT 3.26 mill/uL (4.70-6.10); RED CELL DISTRI WIDTH 15.1 % (11.5-15.5)
[2023-03-30 09:33] LABS: ALBUMIN 3.7 g/dL (3.2-5.0); ALKALINE PHOSPHATASE 86 u/l (38-126); ANION GAP 14 (6-22 (CALC)); BUN 15 mg/dL (8-23); BUN/CREATININE RATIO 16 (12-20 (CALC)); CARBON DIOXIDE 22 mmol/l (22-30); CHLORIDE 106 mmol/l (95-108); GFR FOR AFR.AMER. > 60 ML/MIN (>=60 (CALC)); GFR OTHER RACES > 60 ML/MIN (>=60 (CALC)); POTASSIUM 3.7 mmol/l (3.5-5.1); SGOT/AST 33 u/l (19-48); SODIUM 138 mmol/l (137-146); TOTAL PROTEIN 7.1 g/dL (6.3-8.2)
[2023-03-30 09:40] LABS: BILIRUBIN, TOTAL 0.3 mg/dL (0.2-1.3)
[2023-03-30 10:36] LABS: URINE BILIRUBIN - DIPSTICK Negative (NEGATIVE); URINE BLOOD DIPSTICK Trace-lysed (NEGATIVE); URINE GLUCOSE - DIPSTICK Negative (NEGATIVE); URINE KETONE Negative (NEGATIVE); URINE PH 6.5 (4.5-8.0); URINE PROTEIN - DIPSTICK 30 mg/dL (NEG-TRACE); URINE UROBILINOGEN - DIPSTICK 0.2 E.U./dL (0.2)
[2023-03-30 10:37] LABS: URINE COLOR Yellow; URINE LEUK ESTERASE Moderate (NEGATIVE); URINE NITRITE - DIPSTICK Positive (Negative)
[2023-03-30] MEDS ORDERED: LOSARTAN POTAS100 MG PO (10:55)
[2023-03-30] MEDS ORDERED: HEALTHY EYES PO (10:55)
[2023-03-30] MEDS ORDERED: TYLENOL500 MG PO (10:55)
[2023-03-30] MEDS ORDERED: MEMANTINE HYDRO10 MG PO (10:56)
[2023-03-30] MEDS ORDERED: VITAMIN A8000 UNIT PO (10:57)
[2023-03-30] MEDS ORDERED: SEROQUEL25 MG PO (10:57)
[2023-03-30] MEDS ORDERED: HYDROXYZ HCL25 MG PO (10:58)
[2023-03-30 11:06] LABS: URINE BACTERIA MANY hpf
[2023-03-30 11:07] LABS: URINE WBC 50-100 WBC/hpf (0-5)
[2023-03-30] MEDS ORDERED: ALL DAY10 MG PO (23:04)
[2023-03-31 04:16] VITALS: BP 168/70
[2023-03-31 06:16] VITALS: BP 160/68
[2023-03-31 08:37] LABS: BASO% 0.4 % (0-3); HEMATOCRIT 30.8 % (39.0-50.0); IMMATURE GRANULOCYTES 0.2 % (0.0-5.0); LYMPH% 17.5 % (15-41); MEAN CELL VOLUME 90.1 fL CALC (80.0-100.0); MEAN CORPUSCULAR HGB 29.2 pG CALC (26.0-32.0); MEAN CORPUSCULAR HGB CONC 32.5 g/dL CAL (32.0-36.0); MONO% 10.7 % (2-13); NEUT# 7.43 thou/uL (1.82-7.42); NEUT% 70.2 % (42-76); RED BLOOD COUNT 3.42 mill/uL (4.70-6.10); RED CELL DISTRI WIDTH 15.3 % (11.5-15.5)
[2023-03-31 08:48] LABS: ALBUMIN 3.7 g/dL (3.2-5.0); ALKALINE PHOSPHATASE 84 u/l (38-126); ANION GAP 10 (6-22 (CALC)); BILIRUBIN, TOTAL 0.4 mg/dL (0.2-1.3); BUN 10 mg/dL (8-23); BUN/CREATININE RATIO 12 (12-20 (CALC)); CHLORIDE 103 mmol/l (95-108); CREATININE 0.8 mg/dL (0.7-1.3); GFR FOR AFR.AMER. > 60 ML/MIN (>=60 (CALC)); GFR OTHER RACES > 60 ML/MIN (>=60 (CALC)); MAGNESIUM 1.7 mg/dL (1.6-2.3); SGOT/AST 37 u/l (19-48); SODIUM 136 mmol/l (137-146)
[2023-03-31 09:35] LABS: CARBON DIOXIDE 27 mmol/l (22-30)
[2023-03-31 11:11] VITALS: BP 116/52
[2023-03-31] MEDS ORDERED: TAMSULOSIN0.4 MG PO (13:12)
[2023-03-31] MEDS ORDERED: CEFDINIR300 MG PO (13:15)
== END 2023-03-31 15:06 ==
LOC: ED 08:56 → ED-I 09:38 → ED 11:43 → MS2 11:44
PROVIDERS: Family Medicine; Nurse Practitioner Family; ADMIT Student in an Organized Health Care Education/Training Program; ATTEND Student in an Organized Health Care Education/Training Program
PROC: 0HQ1XZZ Repair Face Skin, External Approach (ICD-10-PCS; principal; 2023-03-30)
DX: I95.1 Orthostatic hypotension (principal); N39.0 Urinary tract infection, site not specified; B96.1 Klebsiella pneumoniae [K. pneumoniae] as the cause of diseases classified elsewhere; E86.0 Dehydration; S01.81XA Laceration without foreign body of other part of head, initial encounter; S51.012A Laceration without foreign body of left elbow, initial encounter; E11.9 Type 2 diabetes mellitus without complications; F03.90 Unspecified dementia, unspecified severity, without behavioral disturbance, psychotic disturbance, mood disturbance, and anxiety; I25.5 Ischemic cardiomyopathy; N40.0 Benign prostatic hyperplasia without lower urinary tract symptoms; E78.5 Hyperlipidemia, unspecified; W19.XXXA Unspecified fall, initial encounter; Y92.099 Unspecified place in other non-institutional residence as the place of occurrence of the external cause; Z79.84 Long term (current) use of oral hypoglycemic drugs; Z95.810 Presence of automatic (implantable) cardiac defibrillator; Z87.820 Personal history of traumatic brain injury; Z20.822 Contact with and (suspected) exposure to COVID-19